=== PATIENT | female | born 1955 ===

== ENCOUNTER 2017-02-04 00:30 | Emergency (ER) | payer MEDICARE ==
[2017-02-04 01:02] VITALS: BP 104/69; PULSE 94; RESP 16; TEMP 98.4; O2SAT 100
--- NOTE | 2017-02-04 01:41 | ED PDOC ---
HPI: General Adult Time Seen by Provider: 02/04/17 00:52 Chief Complaint (Nursing): ENT Problem Chief Complaint (Provider): blister in mouth History Per: Patient History/Exam Limitations: no limitations Onset/Duration Of Symptoms: Hrs Current Symptoms Are (Timing): Still Present Additional History Per: Patient Additional Complaint(s): 61 y/o female history of asthma presents to ED with blister/growth to roof of mouth x 2 hours. PAtient states she noticed lump to roof of mouth after brushing her teeth. Patient notes similar lump in past, spontaneously popped on its own. Denies mouth/throat pain, difficulty swallowing, shortness of breath. Past Medical History Reviewed: Historical Data, Nursing Documentation, Vital Signs Vital Signs: Last Vital Signs Temp 98.4 F 02/04/17 00:49 Pulse 94 H 02/04/17 00:49 Resp 16 02/04/17 00:49 BP 104/69 02/04/17 00:49 Pulse Ox 100 02/04/17 00:49 - Medical History PMH: Anxiety, Asthma, Bronchitis, Depression, Pneumonia Denies: HIV, Chronic Kidney Disease - Surgical History Surgical History: Cholecystectomy, - Family History Family History: States: Unknown Family Hx - Home Medications Home Medications: Ambulatory Orders Medication Instructions Recorded Albuterol Sulfate [Albuterol 3 ml IH Q6 PRN #30 vial 09/10/14 Sulfate 2.5mg/3 ml 0.083%] Beclomethasone Dipropionate [Qvar] 0.08 mg IH BID #1 ml 09/15/14 Montelukast [Singulair] 10 mg PO HS #0 tab 09/15/14 - Allergies Allergies/Adverse Reactions: Allergies Allergy/AdvReac Type Severity Reaction Status Date / Time No Known Allergies Allergy Verified 02/04/17 00:49 Review of Systems ROS Statement: Except As Marked, All Systems Reviewed And Found Negative ENT: Positive for: Other (lump in mouth) Physical Exam - Reviewed Nursing Documentation Reviewed: Yes Vital Signs Reviewed: Yes - Physical Exam Appears: Positive for: Well, Non-toxic, No Acute Distress Head Exam: Positive for: ATRAUMATIC, NORMAL INSPECTION, NORMOCEPHALIC ENT: Positive for: Normal ENT Inspection, Other (0.5cm soft hematoma noted right upper soft palate. Uvula midline. Airway patent) Cardiovascular/Chest: Positive for: Regular Rate, Rhythm Respiratory: Positive for: Normal Breath Sounds - ECG O2 Sat by Pulse Oximetry: 100 - Progress ED Course And Treament: Patient educated on findings, advised ice application. media marketing specialist for oral care. Return to ED for worsening/concerning symptoms. Disposition - Clinical Impression Clinical Impression: Hematoma of oral cavity - Patient ED Disposition Is Patient to be Admitted: No Counseled Patient/Family Regarding: Diagnosis, Need For Followup - Disposition Referrals: Bryce Friend MD [Primary Care Provider] - Disposition: Routine/Home Disposition Time: 01:42 Condition: GOOD Instructions: Hematoma (ED)
== END 2017-02-04 01:50 | disposition home or self-care (01) ==
LOC: H.ER 00:30
DX: R22.0 Localized swelling, mass and lump, head (principal); F41.9 Anxiety disorder, unspecified; J45.909 Unspecified asthma, uncomplicated; F32.9 Major depressive disorder, single episode, unspecified

== ENCOUNTER 2017-11-23 09:17 | Emergency (ER) | payer MEDICARE ==
[2017-11-23 09:48] VITALS: TEMP 97.3; O2SAT 99
--- NOTE | 2017-11-23 10:29 | ED PDOC ---
Upper Extremity Pain/Injury Time Seen by Provider: 11/23/17 10:17 Chief Complaint (Nursing): Upper Extremity Problem/Injury History Per: Patient Onset/Duration Of Symptoms: Days (3) Current Symptoms Are (Timing): Still Present Quality: Pressure Severity: Mild Pain Scale Rating Of: 3 Additional Complaint(s): Pain, pressure and swelling right middle finger x 3 days. No trauma/ No fever. No drainage Past Medical History Vital Signs: Last Vital Signs Temp 97.3 F L 11/23/17 09:46 Pulse 89 11/23/17 09:46 Resp 18 11/23/17 09:46 BP 149/94 H 11/23/17 09:46 Pulse Ox 99 11/23/17 09:46 - Medical History PMH: Anxiety, Asthma, Bronchitis, Depression, Pneumonia Denies: HIV, Chronic Kidney Disease - Surgical History Surgical History: Cholecystectomy, - Family History Family History: States: Unknown Family Hx - Home Medications Home Medications: Ambulatory Orders Medication Instructions Recorded Albuterol Sulfate [Albuterol 3 ml IH Q6 PRN #30 vial 09/10/14 Sulfate 2.5mg/3 ml 0.083%] Beclomethasone Dipropionate [Qvar] 0.08 mg IH BID #1 ml 09/15/14 Montelukast [Singulair] 10 mg PO HS #0 tab 09/15/14 Naproxen [Naprosyn] 500 mg PO Q12H #20 tab 11/23/17 Sulfamethoxazole/Trimethoprim 1 tab PO BID #20 tab 11/23/17 [Bactrim DS 800 mg-160 mg] - Allergies Allergies/Adverse Reactions: Allergies Allergy/AdvReac Type Severity Reaction Status Date / Time No Known Allergies Allergy Verified 02/04/17 00:49 Review of Systems Constitutional: Negative for: Fever Musculoskeletal: Positive for: Hand Pain (Finger pain) Physical Exam - Physical Exam Appears: Positive for: Non-toxic, No Acute Distress Skin: Positive for: Normal Color, Warm, DRY Extremity: Positive for: Other (Right middle finger swelling and tenderness medial paranychia) - ECG O2 Sat by Pulse Oximetry: 99 Medical Decision Making Medical Decision Making: Nitrous oxide used for anxiolysis while performing I&D of paronychial abscess. Pt tolerated procedure well. Disposition - Clinical Impression Clinical Impression: Paronychia - Patient ED Disposition Is Patient to be Admitted: No Counseled Patient/Family Regarding: Diagnosis, Need For Followup, Rx Given - Disposition Referrals: [facility] [Outside] Disposition: Routine/Home Disposition Time: 10:43 Condition: FAIR Prescriptions: Naproxen [Naprosyn] 500 mg PO Q12H #20 tab Sulfamethoxazole/Trimethoprim [Bactrim DS 800 mg-160 mg] 1 tab PO BID #20 tab Instructions: Paronychia Forms: PHRQL (Lithuanian)
[2017-11-23 11:43] VITALS: BP 136/56; PULSE 80; RESP 17
== END 2017-11-23 11:05 | disposition home or self-care (01) ==
LOC: H.ER 09:17
DX: L03.011 Cellulitis of right finger (principal)